=== PATIENT | male | born 1990 | race Two or more races ===

== ENCOUNTER 2025-05-13 14:56 | Emergency (ER) | payer MEDICAID, OTHER ==
[~2025-05-13] VITALS: Ht 172.7 cm; Wt 185.0 kg
--- NOTE | 2025-05-13 15:16 | ED.PDOC ---
History of Present Illness HPI Comments A 34 year-old male, with a social history of heavy Fentanyl, cigarette, and MJ abuse, presents to the ED via EMS with a chief complaint of N/V with associated SOB and body aches as of hours ago. Per EMS, patient came from the crisis center where he reports 2-3 episodes of emesis. Patient reports smoking Fentanyl yesterday, but is currently trying to quit. Patient has no further complaints at this time and otherwise denies further associated symptoms of diarrhea, weakness, fever, chills, dizziness, migraine, abdominal pain, or chest pain. Chief Complaint: N/V Time Seen by MD: 15:10 Reviewed Notes: Bingo Checker Notes, Medications, Allergies Allergies: Coded Allergies: NO KNOWN ALLERGIES (Unverified , 05/13/25) Information Source: Patient, Emergency Med Personnel Mode of Arrival: EMS Severity: Moderate Timing: Hours Duration: Since onset Prehospital treatment: Pain Meds (Zofran ) Associated signs and symptoms N/V, Body Aches, SOB Past Medical History PAST MEDICAL HISTORY: Denies Surgical History: Denies all surgeries Family History Family History: Reviewed,noncontributory to illness, No family hx of Cancer, No family hx of DM, No family hx of Heart darling, No family hx of HTN, No family hx ofKidney darling, No family hx of Liver darling, No family hx of Lung darling, No family hx of Stroke Social History Smoker: Cigarettes Alcohol: Heavy Drugs: Marijuana, Other (Fentanyl) Lives In: Home Constitutional: reports: others (aches ); denies: chills, diaphoresis, fatigue, fever, malaise, sweats, weakness EENTM: denies: blurred vision, double vision, ear bleeding, ear discharge, ear drainage, ear pain, ear ringing, eye pain, eye redness, hearing loss, mouth pain, mouth swelling, nasal discharge, nose bleeding, nose congestion, nose pain, photophobia, tearing, throat pain, throat swelling, voice changes, others Respiratory: reports: SOB at rest, shortness of breath, SOB with excertion; denies: cough, hemoptysis, orthopnea, stridor, wheezing, others Cardiovascular: denies: chest pain, dizzy spells, diaphoresis, Dyspnea on exertion, edema, irregular heart beat, left arm pain, lightheadedness, palpitations, PND, syncope, others Gastrointestinal: reports: nausea, vomiting; denies: abdomen distended, abdominal pain, blood streaked bowels, constipated, diarrhea, dysphagia, difficulty swallowing, hematemesis, melena, poor appetite, poor fluid intake, rectal bleeding, rectal pain, others Genitourinary: denies: burning, dysuria, flank pain, frequency, hematuria, incontinence, penile discharge, penile sore, pain, testicle pain, testicle swelling, urgency, others Neurological: denies: dizziness, fainting, headache, left sided numbness, left sided weakness, numbness, paresthesia, pre-existing deficit, right sided numbness, right sided weakness, seizure, speech problems, tingling, tremors, weakness, others Musculoskeletal: denies: back pain, gout, joint pain, joint swelling, muscle pa in, muscle stiffness, neck pain, others Integumetry: denies: bruises, change in color, change in hair/nails, dryness, laceration, lesions, lumps, rash, wounds, others Allergic/Immunocompromised: denies: Difficulty Healing, Frequent Infections, Hives, Itching, others Hematologic/Lymphatic: denies: anemia, blood clots, easy bleeding, easy bruising, swollen glands, others Endocrine: denies: excessive hunger, excessive sweating, excessive thirst, excessive urination, flushing, intolerance to cold, intolerance to heat, unexplained weight gain, unexplained weight loss, others Psychiatric: denies: anxiety, bipolar disorder, depression, hopeless, panic disorder, schizophrenia, sleepless, suicidal, others All Other Systems: Reviewed and Negative Physical Exam General Appearance: Moderate Distress HEENT: Normal ENT Inspection, Pharynx Normal, TMs Normal Neck: Full Range of Motion, Non-Tender, Normal, Normal Inspection Respiratory: Chest Non-Tender, Lungs Clear, No Accessory Muscle Use, No Respiratory Distress, Normal Breath Sounds Cardiovascular: No Edema, No JVD, No Murmur, No Gallop, Normal Peripheral Pulses, Regular Rate/Rhythm Breast Exam: Deferred Gastrointestinal: No Organomegaly, Non Tender, No Pulsatile Mass, Normal Bowel Sounds, Soft Genitalia: Deferred Pelvic: Deferred Rectal: Deferred Extremities: No calf tenderness, Normal capillary refill, Normal inspection, Normal range of motion, Non-tender, No pedal edema Musculoskeletal : Apperance: Normal Neurologic: risk manager II-XII nml as Tested, Motor Weakness, No Sensory Deficits, Other (Depressed affect and suicidal) Cerebellar Function: Normal Reflexes: Normal Skin: Dry, Normal Color, Warm Lymphatic: No Adenopathy Was a procedure done? Was a procedure done?: No Differential Dx Considerations may include: Suicidal ideation, substance abuse, dehydration, vomiting X-Ray, Labs, Meds, VS Vital Signs Date Time Temp Pulse Resp B/P (MAP) Pulse Ox O2 Delivery O2 Flow Rate FiO2 05/13/25 19:30 98.7 76 16 117/63 (81) 99 98.7 05/13/25 19:30 76 16 99 Room Air* 0 21 05/13/25 18:33 85 18 98 Room Air* 0 21 05/13/25 18:33 98.9 85 18 128/78 (95) 98 98.9 05/13/25 15:19 98.1 90 24 110/85 98 98.1 Lab Test 05/13/25 15:17 Range/Units White Blood Count 13.0 H 4.4-10.8 10^3/uL Red Blood Count 5.99 H 4.5-5.90 10^6/uL Hemoglobin 17.7 H 13.5-17.5 g/dL Hematocrit 49.2 41.0-53.0 % Mean Corpuscular Volume 82.1 80.0-100.0 fL Mean Corpuscular Hemoglobin 29.5 28.0-32.0 pg Mean Corpuscular Hemoglobin Concent 35.9 32.0-36.0 g/dL Red Cell Distribution Width 12.9 11.8-14.3 % Platelet Count 236 140-450 10^3/uL Mean Platelet Volume 7.9 6.9-10.8 fL Neutrophils (%) (Auto) 83.5 H 37.0-80.0 % Lymphocytes (%) (Auto) 13.6 10.0-50.0 % Monocytes (%) (Auto) 1.9 0.0-12.0 % Eosinophils (%) (Auto) 0.3 0.0-7.0 % Basophils (%) (Auto) 0.7 0.0-2.0 % Neutrophils # (Auto) 10.9 H 1.6-8.6 10 ^3/uL Lymphocytes # (Auto) 1.8 0.4-5.4 10 ^3/uL Monocytes # (Auto) 0.2 0-1.3 10 ^3/uL Eosinophils # (Auto) 0 0-0.8 10 ^3/uL Basophils # (Auto) 0.1 0-0.2 10 ^3/uL Nucleated Red Blood Cells 0.4 % Sodium Level 139 136-145 mmol/L Potassium Level 3.6 3.5-5.1 mmol/L Chloride Level 107 98-107 mmol/L Carbon Dioxide Level 22 20-31 mmol/L Anion Gap 10 5-15 Blood Urea Nitrogen 10 9-23 mg/dL Creatinine 0.89 0.700-1.30 mg/dL Glomerular Filtration Rate Calc 117 >90 mL/min BUN/Creatinine Ratio 11.2 10.0-20.0 Serum Glucose 113 H 74-106 mg/dL Calcium Level 10.9 H 8.7-10.4 mg/dL Plasma/Serum Blood Alcohol 4.3 <10 mg/dL An IV Hep-Lock was established with the patient was given normal saline as a bolus The patient's CBC and chemistry panel are within normal limits. The UDS is pending The alcohol level is negative At this time we did interviewed the patient and he states that he is suicidal The patient is considered to be medically cleared A telemedicine psychiatry will be requested We are going to sign the patient out to Dr. Sow Time of 1ST Reevaluation: 16:10 Reevaluation 1ST: Unchanged Time of 2ND Reevaluation: 20:52 Reevaluation 2ND: Improved Patient Education/Counseling: Diagnosis, Treatment, Prognosis Family Education/Counseling: No Family Present SEPSIS Sepsis Screen Physician Orders Heplock Iv (05/13/25 15:08) Fruit Buyer (05/13/25 15:08) Blood Pressure (05/13/25 15:08) Pulse Oximetry (05/13/25 15:08) Electrocardigram (05/13/25 15:08) Drug Screen (05/13/25 15:08) Vital Signs Date Time Temp Pulse Resp B/P (MAP) Pulse Ox O2 Delivery O2 Flow Rate FiO2 05/13/25 19:30 98.7 76 16 117/63 (81) 99 98.7 05/13/25 19:30 76 16 99 Room Air* 0 21 05/13/25 18:33 85 18 98 Room Air* 0 21 05/13/25 18:33 98.9 85 18 128/78 (95) 98 98.9 05/13/25 15:19 98.1 90 24 110/85 98 98.1 Laboratory Tests Test 05/13/25 15:17 White Blood Count 13.0 10^3/uL (4.4-10.8) H Departure 1 Departure Time of Disposition: 20:51 Impression: Primary Impression: Substance abuse Additional Impressions: Accidental fentanyl overdose Qualified Codes: T40.411A - Poisoning by fentanyl or fentanyl analogs, accidental (unintentional), initial encounter Suicidal ideation Disposition: 30 STILL A PATIENT Condition: Fair Critical Care Note Critical Care Time?: No Stability Stability form required: No Heart Score Heart Score: Heart Score Response (Comments) Value History N/A 0 EKG N/A 0 Age N/A 0 Risk Factors N/A 0 Troponin N/A 0 Total 0 I personally scribed for KATHE PRASAD MD ([email or web address]) on 05/13/25 at 15:16. Electronically submitted by Pratima Clinton ([email or web address]). I personally scribed for KATHE PRASAD MD ([email or web address]) on 05/13/25 at 15:22. Electronically submitted by Pratima Clinton ([email or web address]). I personally scribed for KATHE PRASAD MD ([email or web address]) on 05/13/25 at 15:32. Electronically submitted by Pratima Clinton ([email or web address]). KATHE PRASAD MD May 13, 2025 15:16
[2025-05-13 15:31] LABS: Hematocrit 49.2 % (41.0-53.0); Hemoglobin 17.7 g/dL (13.5-17.5); Mean Corpuscular Hemoglobin 29.5 pg (28.0-32.0); Mean Corpuscular Volume 82.1 fL (80.0-100.0); Nucleated Red Blood Cells % 0.4 %
[2025-05-13 15:39] LABS: Chloride 107 mmol/L (98-107); Potassium 3.6 mmol/L (3.5-5.1); Sodium 139 mmol/L (136-145)
[2025-05-13 15:40] LABS: Anion Gap 10 (5-15); Carbon Dioxide 22 mmol/L (20-31)
[2025-05-13 15:45] LABS: Blood Urea Nitrogen 10 mg/dL (9-23); Glucose 113 mg/dL (74-106)
[2025-05-13 15:46] LABS: BUN/Creatinine Ratio 11.2 (10.0-20.0); Calcium 10.9 mg/dL (8.7-10.4)
[2025-05-13] MEDS: SODIUM CHLORIDE 0.9% 1,000 ML IV ONE (16:18)
[2025-05-13 18:33] VITALS: PULSE 85; RESP 18; O2SAT 98
[2025-05-13 19:30] VITALS: PULSE 76; RESP 16; O2SAT 99
--- NOTE | 2025-05-14 01:28 | DVHINCON2 ---
Date of Service if different f: May 14, 2025 Time of Service: 00:59 Consult Consult Note PSYCHIATRY ED NEW CONSULT HPI: 34 yo pt with PPH of depression, anxiety and OUD presents to ED BIB sponsor for safety, psychiatric stabilization, and possible med initiation/optimization in setting of opiate w/d symptoms and passive SI. Psychiatry consulted for safety evaluation and recommendations in context of current presentation Pt reports over past several days/weeks experiencing worsening depressed mood, hopelessness/helplessness, negative thoughts, isolation/withdrawn, loss of interest, decreased energy, difficulty with focus, poor sleep/appetite, low self-worth, amotivation, and anxiety symptoms to include excessive worry, rumination, restlessness, racing/intrusive thoughts, palpitations, feeling tensed, CAH to hurt self, and irritability. Also intermittent SI that are fleeting but worsening over past several days with plan to hang self with some intent resulting in some interference with daily functioning. Denies HI/VH/paranoia/catatonic/perceptual disturbances. No overt manic, psychotic, cognitive, dissociative phenomena, panic, OCD, PTSD, or somatic symptoms noted Does not have active outpt MH services established at this time. Currently not on any psychotropic agents, no prior psych med trials Admits to daily THC and fentanyl use with last use less than 24 hrs ago, moderate hx of opiate dependency including accidental fentanyl OD necessitating Narcan administration, rx'd Suboxone 12 mg bid, never IVDU Single, no children, unemployed, currently at a 90 day rehab program, some support system noted (immediate family) Unknown trauma hx. Denies FH of psych hospitalizations, suicide attempts, or completed suicides No acute medical/chronic pain issues, hx of seizures/TBI, or recent head injuries, NKDA Denies hx of SI/SIB/SA/PSG or prior psych hospitalizations/5150 holds. Denies history of violence, aggression, or assaultive behaviors. Does not have access to firearms Currently endorses passive SI MSE: General Appearance/Behavior: Alert/awake; appears stated age, marginal grooming/hygiene; calm and cooperative, fair eye contact, no PMA/PMR Speech: coherent, rrr Thought Process: L/L/GD Thought Content: Abnormal Thoughts/Perceptions: denies dissociative symptoms Homicidality / Violent Thoughts: adamantly denies HI Suicidality: + SI Hallucinations: +AH Delusions: denies paranoia, persecutory, or grandiose delusions Obsessions /compulsions: None Judgment/Insight: marginal/fair Mood & Affect: "depressed" with mood-congruent, somewhat restricted/appropriate Orientation: oriented x 3 Attention/Concentration: appears intact Cognition: grossly intact Reassessment: 34 yo pt with PPH of depression, anxiety and OUD presents to ED BIB sponsor for safety, psychiatric stabilization, and possible med initiation/optimization in setting of opiate w/d symptoms and passive SI Pt currently expressing some SI in setting of major depressive episode with PF complicated by moderate OUD/withdrawal symptoms. Not on any psychotropics which may be contributing to current symptoms. No outpt MH services at present. Pt agrees to talk with staff instead of acting on any suicidal feelings while in ED. Pt medically cleared in ED Acute safety risk remains slightly elevated and is appropriate for inpatient psychiatric admission for further safety, psychiatric stabilization, and possible medication initiation. Pt willing to transfer to inpt psych facility voluntarily. Consider 5150 hold for DTS ONLY if needed for transfer or if no voluntary beds are available Primary Diagnosis: Major Depressive disorder, moderate, w/PF. THC use d/o, unspecified. OUD, moderate/severe Recommend VOL transfer to inpt psych facility for higher level of care 1:1 sitter is recommended Maintain suicide/elopement precautions Defer any psychotropic med initiation to accepting inpt psych facility Risks/benefits/alternative treatments discussed, informed consent provided by pt If patient later refuses voluntary hospitalization/ requests to be discharged from ED prior to transfer, please reconsult telepsych services to evaluate for 5150 hold Pt verbalized understanding and is receptive to above tx plan This case was discussed with ED nurse/provider and all parties in agreement with above tx plan Obey Hsu MD Plan discussed with: Patient OBEY HSU MD May 14, 2025 01:28
[2025-05-14 08:10] VITALS: PULSE 89; RESP 16; O2SAT 99
[2025-05-14 10:49] LABS: Amphetamine Screen, Urine Neg (NEGATIVE); Cannabinoid Screen, Urine Pos (NEGATIVE)
[2025-05-14 10:53] LABS: Barbiturate Scree,Urine Neg (NEGATIVE); Benzodiazephine Screen, Urine Neg (NEGATIVE); Cocaine Screen, Urine Neg (NEGATIVE); Opiate Scree,Urine Neg (NEGATIVE); Phencyclidine Screen, Urine Neg (NEGATIVE)
[2025-05-14 12:26] VITALS: BP 109/59; PULSE 83; RESP 17; TEMP 97.6; O2SAT 97
== END 2025-05-14 12:50 ==
LOC: ER 14:56 → EDBD 14:56 → ER 05-14 12:50
DX: T40.411A Poisoning by fentanyl or fentanyl analogs, accidental (unintentional), initial encounter (principal); R45.851 Suicidal ideations; F12.90 Cannabis use, unspecified, uncomplicated; F17.210 Nicotine dependence, cigarettes, uncomplicated; F10.10 Alcohol abuse, uncomplicated; Z88.8 Allergy status to other drugs, medicaments and biological substances; Y92.89 Other specified places as the place of occurrence of the external cause; Y90.0 Blood alcohol level of less than 20 mg/100 ml
CPT/HCPCS: 36415; 80048; 80307; 80320; 85025